=== PATIENT | female | born 1940 | race Caucasian/White ===

== ENCOUNTER → 2016-09-05 | Outpatient (REF) ==
[~2016-09-05] MED LIST: AMLOPIDINE PO; ATARAX10 MG PO; ATENOLOL50 MG PO; CALCIUM CITRAT200 MG PO; CEFTIN250 MG PO; CEPHALEXIN500 M1 PO; DEPAKOTE 250MG250 MG PO; EFFEXOR 75M75 MG/TAB PO; EFFEXOR37.5 MG PO; FLUOXETINE PO; FOSAMAX 70MG TA70 MG PO; FUROSEMIDE PO; INHALER; LAMICTAL150 MG PO; LEVAQUIN; LEVOTHYROXINE0.1 MG PO; LISINOPRIL20 MG PO; LISINOPRIL30 MG PO; LORAZEPAM0.5 MG PO; MIRALAX17 GM/DOSE PO; PRAVACHOL 40MG40 MG PO; PRAVACHOL10 MG PO; PREDNISONE10 MG PO; PROZAC 20MG20 MG PO; RISPERIDONE; SEROQUEL50 MG PO; VENTOLIN0.09 MG IH; WELLBUTRIN SR150 M1 PO
[2016-09-05 09:33] LABS: THYROID STIMULATING HORMONE 8.44 uIU/mL (0.465-4.680)
== END ==
LOC: ZLAB.WCH 08:41
PROVIDERS: Family Medicine
DX: Z01.89 Encounter for other specified special examinations (principal)

== ENCOUNTER → 2016-12-17 | Outpatient (REF) ==
[2016-12-17 09:32] LABS: THYROID STIMULATING HORMONE 0.409 uIU/mL (0.465-4.680)
== END ==
LOC: ZLAB.WCH 08:42
PROVIDERS: Medical Genetics Clinical Genetics (M.D.)
DX: Z01.89 Encounter for other specified special examinations (principal)

== ENCOUNTER → 2017-10-08 | Outpatient (REF) | LOC: ZLAB.WCH 18:10 | DX: Z01.89 Encounter for other specified special examinations (principal) ==

== ENCOUNTER → 2017-11-05 | Outpatient (REF) ==
[2017-11-05 16:53] LABS: THYROID STIMULATING HORMONE 0.26 uIU/mL (0.465-4.680)
[2017-11-05 23:35] LABS: THYROXINE (T4)-TOTAL 8.8 ug/dL (5.5-11.0)
== END ==
LOC: ZLAB.WCH 16:05
PROVIDERS: Family Medicine
DX: Z01.89 Encounter for other specified special examinations (principal)

== ENCOUNTER → 2018-02-06 | Outpatient (REF) | LOC: ZLAB.WCH 15:51 | DX: Z01.89 Encounter for other specified special examinations (principal) ==

== ENCOUNTER → 2018-05-11 | Outpatient (REF) ==
[2018-05-11 16:41] LABS: THYROID STIMULATING HORMONE 0.075 uIU/mL (0.465-4.680)
== END ==
LOC: ZLAB.WCH 15:56
PROVIDERS: Family Medicine
DX: Z01.89 Encounter for other specified special examinations (principal)

== ENCOUNTER → 2018-07-06 | Outpatient (REF) | LOC: ZLAB.WCH 15:53 | DX: Z01.89 Encounter for other specified special examinations (principal) ==

== ENCOUNTER 2018-12-06 18:39 | Emergency (ER) | payer MEDICARE, BC, OTHER ==
[~2018-12-06] VITALS: Ht 162.6 cm; Wt 72.7 kg
[2018-12-06 18:40] VITALS: TEMP 97.4
[2018-12-06 21:20] VITALS: BP 150/77; PULSE 67
== END 2018-12-06 21:20 | disposition home or self-care (01) ==
LOC: COL.ER 18:39
DX: S00.93XA Contusion of unspecified part of head, initial encounter (principal); F03.90 Unspecified dementia, unspecified severity, without behavioral disturbance, psychotic disturbance, mood disturbance, and anxiety; I10 Essential (primary) hypertension; I25.2 Old myocardial infarction; E78.00 Pure hypercholesterolemia, unspecified; R40.2410 Glasgow coma scale score 13-15, unspecified time; W01.0XXA Fall on same level from slipping, tripping and stumbling without subsequent striking against object, initial encounter; Y92.129 Unspecified place in nursing home as the place of occurrence of the external cause